=== PATIENT | male | born 1940 | race Caucasian/White ===

== ENCOUNTER 2019-05-12 06:01 | Day surgery (SDC) | payer MEDICARE ==
[~2019-05-12 06:01] MED LIST: ACETAMINOPHEN 1,000 MG/100 ML BTL IVPB ONE
[2019-05-12] MEDS ORDERED: LIDOCAINE 2% MDV (20MG/ML) 20ML VIAL IV ONE (06:02)
[2019-05-12] MEDS ORDERED: HYDROMORPHONE HCL 2 MG/ML VIAL IV ONE (06:02)
[2019-05-12] MEDS ORDERED: GLYCOPYRROLATE 0.2 MG/ML ML IV ONE (06:02)
[2019-05-12] MEDS ORDERED: ACETAMINOPHEN 1,000 MG/100 ML BTL IV ONE (06:02)
[2019-05-12] MEDS ORDERED: BUPIVACAINE 0.25% MPF 30ML VIAL IVP ONE (06:02)
[2019-05-12] MEDS ORDERED: EPHEDRINE SULFATE 50 MG/ML ML IV ONE (06:02)
[2019-05-12] MEDS ORDERED: BUPIVACAINE LIPOSOME/PF 133MG/10ML VIAL IV ONE (06:02)
[2019-05-12] MEDS ORDERED: MIDAZOLAM HCL 2MG/2ML VIAL IV ONE (06:02)
[2019-05-12] MEDS ORDERED: ATROPINE SULFATE 0.4 MG/ML 20ML IVP ONE (06:02)
[2019-05-12] MEDS ORDERED: DESFLURANE 240 ML BTL INH ONE (06:02)
[2019-05-12] MEDS ORDERED: PROPOFOL 10 MG/ML VIAL IV ONE (06:02)
[2019-05-12] MEDS ORDERED: DEXAMETHASONE 4 MG/ML 1ML VIAL IVP ONE ×2 (06:02)
[2019-05-12] MEDS ORDERED: FENTANYL PF 100MCG/2ML VIAL IV ONE (06:02)
[2019-05-12] MEDS ORDERED: ONDANSETRON HCL IV 4 MG/2 ML VIAL IVP ONE (06:02)
[2019-05-12] MEDS ORDERED: RINGERS SOLUTION,LACTATED 1,000 ML IV ONE (06:45)
[2019-05-12] MEDS ORDERED: EPINEPHRINE 1 MG/ML AMPUL IM ONE (08:16)
--- NOTE | 2019-05-12 11:03 | Operative Note ---
DATE OF SURGERY: 05/12/2019 SURGEON: Lamberto Jaime D.O. REFERRING PHYSICIAN: Enio Mccarthy D.O. PREOPERATIVE DIAGNOSIS: 1. TEAR OF THE RIGHT ROTATOR CUFF. 2. IMPINGEMENT SYNDROME RIGHT SHOULDER. POSTOPERATIVE DIAGNOSIS: 1. TEAR OF THE RIGHT ROTATOR CUFF. 2. IMPINGEMENT SYNDROME RIGHT SHOULDER. OPERATION: 1. ARTHROSCOPIC REPAIR OF THE RIGHT ROTATOR CUFF. 2. ARTHROSCOPIC SUBACROMIAL DECOMPRESSION AND ACROMIOPLASTY RIGHT SHOULDER. This 78-year-old male was taken to the Operating Room and placed in a supine position on the operating room table. General anesthesia was induced. He was placed in beach chair position with all bony prominences well padded. The head was well secured. The right shoulder was prepped with Hibiclens and draped in the usual sterile fashion. A posterior portal was established in the glenohumeral joint of the right shoulder and initial evaluation of the joint demonstrated essentially normal appearance of the articular cartilage. The biceps tendon appeared normal, it was not subluxed. The subscapularis tendon appeared to be normal. There was disruption of the supraspinatus tendon with conservatively more retraction than anticipated from the MRI and then some fraying of the undersurface of the infraspinatus was also identified. Utilizing the anterior portal we debrided the undersurface of the supraspinatus and infraspinatus to what was felt to be healthy tissue. We then placed the scope in the subacromial space and thorough subacromial decompression and acromioplasty was performed. This gave us excellent visualization of his rotator cuff. The torn portion of the cuff had marginal tissue. We were not able to bring it back down to its anatomic footprint so we medialized the articular cartilage by about 3-5 mm and debrided this to healthy appearing bone. We then felt that we could repair this cuff tear and we then placed two suture anchors adjacent to the articular cartilage, one at the anterior margin of the tear which was just behind the biceps tendon and the second at the posterior margin of the tear. A 4.75 swivel locking anchor was used, one with fiber tape and the second with a tiger tape. These were then shuttled to the rotator cuff and we felt that additional supported suture would be helpful and a horizontal mattress suture was subsequently placed with a #2 fiber wire. A single limb then of each one of these sutures was then passed through a third swivel locking anchor which was placed inferior to the anterior anchor, traction was then placed on these sutures to bring the cuff down to as close to anatomic position as possible and the anchor was impaled. The remaining three tales of the suture were placed through the fourth swivel locking anchor which was then placed inferior to the posterior anchor and again traction placed on these sutures to bring the cuff down to near anatomic position. The sutures were cut and the repair was seen to be satisfactory. The wound was then irrigated and suctioned and the instruments were removed. The portals were closed with 4-0 nylon suture, sterile dressings were applied with an UltraSling and the patient was taken to the Recovery Room in satisfactory condition. GROSS PATHOLOGY: This patient demonstrated a somewhat retracted tear of the anterior aspect of the supraspinatus tendon with some inferior fraying of the supraspinatus and infraspinatus tendons which was debrided as described above. JOB NUMBER: [id number] MTDD
== END 2019-05-12 10:05 | disposition home or self-care (01) ==
LOC: SUR 06:01
PROVIDERS: ATTEND Orthopaedic Surgery
DX: M75.101 Unspecified rotator cuff tear or rupture of right shoulder, not specified as traumatic (principal); M75.41 Impingement syndrome of right shoulder; I10 Essential (primary) hypertension; G25.0 Essential tremor; K21.9 Gastro-esophageal reflux disease without esophagitis
CPT/HCPCS: 76942; C9290; J0171; J2405; J7120